=== PATIENT | male | born 2000 | race Two or more races ===

== ENCOUNTER 2023-12-12 11:14 | Emergency (ER) | payer MEDICAID ==
[~2023-12-12] VITALS: Ht 175.3 cm; Wt 84.1 kg
[2023-12-12 11:28] VITALS: TEMP 98.1
[2023-12-12 12:41] LABS: PH,URINE DRUG SCREEN 6.5 (5.0-8.0)
[2023-12-12 12:55] LABS: BASOPHILS % (AUTO) 0.8 % (0.0-2.0); EOSINOPHILS % (AUTO) 0.1 % (1.0-6.0); HEMOGLOBIN 15.3 g/dL (13.5-17.5); LYMPHOCYTES # (AUTO) 1.7 K/uL (1.0-4.8); LYMPHOCYTES % (AUTO) 14.7 % (22.0-44.0); MEAN CORPUSCULAR HEMOGLOBIN 30.9 pg (26.0-34.0); MEAN CORPUSCULAR VOLUME 91 fL (80-100); NEUTROPHILS # (AUTO) 8.5 K/uL (1.8-7.7); NEUTROPHILS % (AUTO) 75.4 % (40.0-70.0); PLATELET COUNT (AUTO) 236 K/uL (150-450); RED BLOOD CELL COUNT(AUTO) 4.94 MIL/uL (4.50-5.90); RED CELL DISTRIBUTION WIDTH 12.3 % (11.5-14.5); WHITE BLOOD COUNT (AUTO) 11.3 K/uL (4.5-11.0)
[2023-12-12 13:07] LABS: ANION GAP 6 mmol/L (8-16); CALCIUM, TOTAL 9.6 mg/dL (8.8-10.5); CARBON DIOXIDE 31 mmol/L (22-29); CHLORIDE 102 mmol/L (98-107); CREATININE 0.67 mg/dL (0.60-1.30); GLOMERULAR FILTR. RATE CALC > 60 mL/min (>60); GLUCOSE,RANDOM 97 mg/dL (70-110); POTASSIUM 3.4 mmol/L (3.5-5.1); SODIUM SERUM 139 mmol/L (136-145); UREA NITROGEN, BLOOD 7 mg/dL (7-18)
[2023-12-12 13:16] LABS: ALCOHOL, URINE DRUG SCREEN NEGATIVE (NEGATIVE); AMPHET/METH SCREEN,URINE NEGATIVE (NEGATIVE); BARBITURATE SCREEN, URINE NEGATIVE (NEGATIVE); BENZODIAZEPINES SCREEN,URINE NEGATIVE (NEGATIVE); CANNABINOID SCREEN,URINE NEGATIVE (NEGATIVE); COCAINE SCREEN,URINE POSITIVE (NEGATIVE); METHADONE SCREEN, URINE NEGATIVE (NEGATIVE); OPIATE SCREEN,URINE NEGATIVE (NEGATIVE); PHENCYCLIDINE SCREEN,URINE NEGATIVE (NEGATIVE)
[2023-12-12 13:33] LABS: ALCOHOL, BLOOD (SERUM) < 3 mg/dL (0-10)
[2023-12-12 15:18] VITALS: BP 132/80; PULSE 97; RESP 18
== END 2023-12-12 15:26 | disposition home or self-care (01) ==
LOC: EMS 11:14
DX: F14.10 Cocaine abuse, uncomplicated (principal)
CPT/HCPCS: 99284; 80048; 85025; 36415; 93005; 80307; G0480

== ENCOUNTER 2024-08-26 10:46 | Emergency (ER) | payer MEDICAID ==
[~2024-08-26] VITALS: Ht 177.8 cm; Wt 88.6 kg
[2024-08-26 11:02] VITALS: TEMP 98
[2024-08-26] MEDS: ACETAMINOPHEN 500 MG TABLET PO ONE (11:34)
[2024-08-26] MEDS: IBUPROFEN 600 MG TABLET PO ONE (11:34)
[2024-08-26 12:45] VITALS: BP 127/74; PULSE 80; RESP 16; O2SAT 99
== END 2024-08-26 13:13 | disposition home or self-care (01) ==
LOC: EMS 11:06
DX: S93.402A Sprain of unspecified ligament of left ankle, initial encounter (principal); F17.210 Nicotine dependence, cigarettes, uncomplicated; V89.2XXA Person injured in unspecified motor-vehicle accident, traffic, initial encounter; Y93.89 Activity, other specified; Y92.89 Other specified places as the place of occurrence of the external cause; Y99.8 Other external cause status
CPT/HCPCS: 99283; 99406